=== PATIENT | male | born 1990 | race Caucasian/White ===

== ENCOUNTER 2024-08-16 09:54 | Day surgery (SDC) | payer OTHER, SELFPAY ==
[2024-08-09 09:23] VITALS: BMI 41.8
[2024-08-09 10:36] LABS: Hematocrit 51.7 % (39.0-52.0); Hemoglobin 17.7 g/dL (13.0-18.0); Mean Corp Hgb Conc. 34.2 g/dL (33.0-37.0); Mean Corpuscular Hgb 28.5 pg (27.0-31.0); Mean Corpuscular Volume 83.3 fL (80.0-94.0); Mean Platelet Volume 11.4 fL (7.4-10.4); Platelet Count 205 10^3/uL (130-400); Red Blood Cell Count 6.21 10^6/uL (4.70-6.10); Red Cell Dist. Width 14.1 % (11.5-14.5)
[2024-08-09 11:00] LABS: ALT (SGPT) 35 U/L (0-50); AST (SGOT) 25 U/L (17-59); Albumin 4.5 g/dl (3.5-5.0); Alkaline Phosphatase 57 U/L (38-126); Blood Urea Nitrogen 18 mg/dl (9-20); Calcium 9.9 mg/dl (8.4-10.2); Carbon Dioxide 27 mmol/L (22-30); Chloride 99 mmol/L (98-107); Estimated Creatinine Clearance > 125 ml/min; Glucose 120 mg/dl (70-99); Potassium 4.6 mmol/L (3.5-5.1); Sodium 143 mmol/L (135-145); Total Bilirubin 0.5 mg/dl (0.2-1.3); Total Protein 7.8 g/dl (6.3-8.2); eGFR > 60.00
[2024-08-16] VITALS (7 sets, daily range): BP systolic 106–147; BP diastolic 54–92; BMI 41.8
[2024-08-16 10:39] LABS: Glucose - Point of Care 114 mg/dl (70-99)
[2024-08-16 16:18] LABS: Glucose - Point of Care 97 mg/dl (70-99)
[2024-08-20 05:50] LABS: Glucose - Point of Care 85 mg/dl (70-99)
[2024-08-20 05:50] LABS: Glucose - Point of Care 91 mg/dl (70-99)
== END 2024-08-16 17:46 | disposition home or self-care (01) ==
LOC: SDS 09:54
PROVIDERS: ATTENDING PHYSICIAN Otolaryngology; FAMILY PHYSICIAN Family Medicine
DX: J34.2 Deviated nasal septum (principal); L98.0 Pyogenic granuloma; J32.9 Chronic sinusitis, unspecified; R04.0 Epistaxis
CPT/HCPCS: 30520; 88300; 88304; 36415; 80053; 82962; 85027; 93005